=== PATIENT | male | born 1995 | race Hispanic/Latino ===

== ENCOUNTER → 2019-07-26 | Outpatient (REF) | payer OTHER | LOC: M SFHCLERA 10:04 | PROVIDERS: ATTEND Nurse Practitioner Family | DX: J02.9 Acute pharyngitis, unspecified (principal) ==

== ENCOUNTER → 2020-09-16 | Outpatient (CLI) | payer SELFPAY | LOC: M LABSMTC 10:07 | PROVIDERS: ATTEND Pediatrics | DX: Z20.828 Contact with and (suspected) exposure to other viral communicable diseases (principal) ==

== ENCOUNTER 2021-11-06 16:27 | Emergency (ER) | payer OTHER, SELFPAY ==
[~2021-11-06] VITALS: Ht 180.3 cm; Wt 110.9 kg
[2021-11-06] MEDS ORDERED: AUGMENTIN 875 MG TAB PO ONE (18:20)
[2021-11-06 18:47] LABS: BASO % 0.3 % (0.0-1.0); EOS # 0.2 10^3/uL (0.0-0.5); EOS % 1.8 % (0.0-3.0); HEMATOCRIT 43.7 % (42.0-52.0); HEMOGLOBIN 14.9 g/dl (13.5-17.5); MEAN CORPUSCULAR HEMOGLOBIN 30.3 pg (27.0-33.0); MEAN CORPUSCULAR HGB CONC 34.1 g/dl (32.0-36.5); MONO # 0.7 10^3/uL (0.0-0.8); MONO % 7.3 % (2.0-8.0); NEUTROPHILS # 5.2 10^3/uL (1.5-8.5); NEUTROPHILS % 57.4 % (36.0-66.0); PLATELET COUNT, AUTOMATED 262 10^3/uL (150-450); RED BLOOD COUNT 4.91 10^6/uL (4.30-6.10); WHITE BLOOD COUNT 9.1 10^3/uL (4.0-10.0)
[2021-11-06] MEDS ORDERED: AMOX875T2 PO (19:09)
[2021-11-06 19:19] VITALS: BP 138/71
[2021-11-06 19:23] LABS: ERYTHROCYTE SEDIMENTATION RATE 11 mm/hr (0-15)
== END 2021-11-06 19:20 | disposition home or self-care (01) ==
LOC: M ED 16:27
DX: S60.940A Unspecified superficial injury of right index finger, initial encounter (principal); W54.0XXA Bitten by dog, initial encounter; Y92.009 Unspecified place in unspecified non-institutional (private) residence as the place of occurrence of the external cause; Y93.K3 Activity, grooming and shearing an animal; Y99.9 Unspecified external cause status

== ENCOUNTER → 2025-07-05 | Outpatient (REF) | payer OTHER ==
[~2025-07-05] MED LIST: AMOX875T2 PO
== END ==
LOC: M SMT 15:22
PROVIDERS: ATTEND Urology
DX: Z30.2 Encounter for sterilization (principal)

== ENCOUNTER → 2025-09-03 | Outpatient (REF) | payer OTHER ==
[2025-09-03 10:49] LABS: SEMEN APPEARANCE OPAQUE (OPAQUE); SEMEN VISCOSITY VISCOUS (LIQUID); SEMEN VOLUME 3.0 ml (2.0-5.0); WBC CONCENTRATION <=1 M/ml (<=1 M/ml)
== END ==
LOC: M SMT 10:31
PROVIDERS: ATTEND Urology
DX: Z30.8 Encounter for other contraceptive management (principal)